=== PATIENT | female | born 1955 | race Two or more races ===

== ENCOUNTER 2024-04-04 06:26 | Day surgery (SDC) | payer MEDICARE, OTHER, SELFPAY | END 2024-04-04 11:53 | disposition home or self-care (01) | LOC: GI 06:26 | PROVIDERS: ATTENDING PHYSICIAN Internal Medicine Gastroenterology | DX: Z12.11 Encounter for screening for malignant neoplasm of colon (principal); D12.0 Benign neoplasm of cecum; Z86.0100 Personal history of colon polyps, unspecified; K64.8 Other hemorrhoids; K57.30 Diverticulosis of large intestine without perforation or abscess without bleeding | CPT/HCPCS: 45380; 88305 ==